=== PATIENT | male | born 1995 | race Caucasian/White ===

== ENCOUNTER 2018-10-06 18:20 | Observation (INO) | payer OTHER ==
[2018-10-06] MEDS ORDERED: K-LYTE 25 MEQ PO ONE (18:27)
[2018-10-06] MEDS: POTASSIUM CHLORIDE 20 mEq IN WATER 100ML 20 MEQ/100 ML BAG IV SCH ×2 (19:08→21:22)
[2018-10-06] MEDS ORDERED: Sodium Chloride 0.9% 1000 ML 1,000 ML ONE (20:14)
[2018-10-06] MEDS ORDERED: Sodium Chloride 0.9% 1000 ML 1,000 ML IV SCH (20:30)
[2018-10-06] MEDS ORDERED: POTASSIUM CHLORIDE 20 mEq IN WATER 100ML 100 ML IV ONE (21:18)
--- NOTE | 2018-10-06 22:04 | PCM.SSS ---
History of Present Illness - Chief Complaint Chief Complaint: HYPOKALEMIA History of Present Illness: is a 23 year old male pt of mine from [facility] with hemihypertrophy and intellectual functional disability who was admitted with hypokalemia, directly. He came to me for surgical clearance. His mom noted that he had been hypokalemic two different times in the past 1-2 years, with potassium down to 2.1. I ordered a serum magnesium and thought I ordered a serum potassium but it was not put in. Today I ordered the potassium and the pt came to the lab. He was found to have potassium of 2.4 so was directly admitted in an effort to be able to clear him surgically before his scheduled procedure (7:30 tomorrow a.m. in [place]). He is receiving a 40mEq bolus of potassium and po K lyte 25 mEq; if his post potassium is 3.0 or more, he will be discharged to home. - Review of Systems All Other Systems: Reviewed and Negative Medications & Allergies Home Medications: Home Medication List No Home Meds [No Home Meds] 1 ea MC UD 06/25/15 [History Confirmed 10/06/18] Allergies/Adverse Reactions: Allergies Allergy/AdvReac Type Severity Reaction Status Date / Time azithromycin [From Zithromax] Allergy Verified 10/06/18 18:56 egg Allergy Verified 06/25/15 12:08 ranitidine HCl [From Zantac] Allergy Verified 06/25/15 12:08 - Past Medical History Past Medical History: Yes Neurological History: No Pertinent History ENT History: No Pertinent History Cardiac History: No Pertinent History Respiratory History: No Pertinent History Endocrine Medical History: No Pertinent History Musculoskelatal History: Other GI Medical History: No Pertinent History History: No Pertinent History Pyscho-Social History: Depression Male Reproductive Disorders: No Pertinent History Comment: Hemihypertrophy - Past Surgical History Past Surgical History: Yes Neuro Surgical History: No Pertinent History Cardiac History: No Pertinent History Respiratory Surgery: No Pertinent History GI Surgical History: No Pertinent History Genitourinary Surgical Hx: No Pertinent History Musculskeletal Surgical Hx: Other Male Surgical History: No Pertinent History Other Surgical History: defect--bilat leg surgery, bilateral knee surgeries, manoj from hip to knee R leg - Social History Smoking Status: Current every day smoker Exposure to second hand smoke: No Alcohol: Occasionally Drug Use: none - Physical Exam General Appearance: no apparent distress, alert, thin Neurologic Exam: oriented x 3, cooperative Eye Exam: eyes nml inspection Ears, Nose, Throat Exam: moist mucous membranes Neck Exam: normal inspection, non-tender, No lymphadenopathy Respiratory Exam: normal breath sounds, lungs clear, No crackles/rales, No rhonchi, No wheezing Cardiovascular Exam: regular rate/rhythm, normal heart sounds, No murmur Gastrointestinal/Abdomen Exam: No mass, No guarding Extremity Exam: normal inspection, pedal edema, swelling Skin Exam: normal color, warm, dry, No rash Assessment/Plan (1) Hypokalemia Current Visit: No Status: Acute Assessment & Plan: Repleting; when done pt can d/c to home. Code(s): E87.6 - HYPOKALEMIA Hospital Summary - Hospital Course Hospital Course: is a 23 year old male pt of mine from [facility] with hemihypertrophy and intellectual functional disability who was admitted with hypokalemia, directly. He came to me for surgical clearance. His mom noted that he had been hypokalemic two different times in the past 1-2 years, with potassium down to 2.1. I ordered a serum magnesium and thought I ordered a serum potassium but it was not put in. Today I ordered the potassium and the pt came to the lab. He was found to have potassium of 2.4 so was directly admitted in an effort to be able to clear him surgically before his scheduled procedure (7:30 tomorrow a.m. in [place]). He is receiving a 40mEq bolus of potassium and po K lyte 25 mEq; if his post potassium is 3.0 or more, he will be discharged to home. - Vitals & Intake/Output Intake & Output: Intake & Output 10/04/18 10/05/18 10/06/18 10/07/18 11:59 11:59 11:59 11:59 Intake Total 300 Balance 300 Weight 86.5 kg - Discharge Disposition: Home, Self-Care Condition: Good Prescriptions: Continue No Home Meds [No Home Meds] 1 nilda [facility] Follow up with: ROBIN COSME [Primary Care Provider] - 1 Week
[2018-10-07] MEDS ORDERED: POTASSIUM CHLORIDE 20 mEq IN WATER 100ML 20 MEQ/100 ML BAG IV ONE (02:48)
--- NOTE | 2018-10-07 09:14 | PCM.NOTE ---
Date and Time: 10/07/18910 Subjective Assessment: After 40 mEq K rider and 25 mEq Klyte his potassium went from 2.4 to 2.6. Did 20 mEq more Krider with potassium 2.8. His surgery has been cancelled for this morning. He is not having any subjective complaints. - Review of Systems Constitutional: No Fever Abdominal/Gastrointestinal: No Vomiting, No Diarrhea Objective Exam General Appearance: no apparent distress, alert Neurologic Exam: oriented x 3, cooperative Skin Exam: normal color, warm, dry, No rash Eye Exam: eyes nml inspection Ears, Nose, Throat Exam: moist mucous membranes Respiratory Exam: normal breath sounds, lungs clear, No crackles/rales, No rhonchi, No wheezing Cardiovascular Exam: regular rate/rhythm, normal heart sounds, No murmur Gastrointestinal/Abdomen Exam: soft, normal bowel sounds, No tenderness, No distention, No mass, No guarding, No rebound Extremity Exam: normal inspection, No pedal edema, No swelling OBJECTIVE DATA Vital Signs: Vital Signs - 24 hr Temp Pulse Resp BP Pulse Ox 10/07/18 07:30 97.8 F 55 L 18 134/58 98 10/07/18 04:00 97.5 F 69 14 112/79 99 10/07/18 00:13 98.5 F 77 16 114/70 98 10/06/18 21:25 98.6 F 91 H 18 112/65 97 Intake and Output: Intake & Output 10/04/18 10/05/18 10/06/18 10/07/18 11:59 11:59 11:59 11:59 Intake Total 1278 Balance 1278 Weight 86.5 kg Lab Results: Lab Results-Last 24 Hours 10/07/18 10/07/18 Range/Units 02:12 06:09 Potassium 2.6 L* 2.8 L* (3.5-5.1) mmol/L Assessment/Plan (1) Hypokalemia Current Visit: No Status: Acute Assessment & Plan: He is likely chronically low, but I do not know the etiology of that. Consulted nephrology, thank you. After his previous episode of low K he was not sent home on any potassium. Has a hard time taking pills so I will start him on Klyte po. Code(s): E87.6 - HYPOKALEMIA (2) Hemihypertrophy Current Visit: Yes Status: Chronic Code(s): Q89.8 - OTHER SPECIFIED CONGENITAL MALFORMATIONS (3) Intellectual disability Current Visit: Yes Status: Chronic Code(s): F79 - UNSPECIFIED INTELLECTUAL DISABILITIES
[2018-10-07] MEDS ORDERED: K-LYTE 25 MEQ PO SCH (10:00)
[2018-10-07 12:41] VITALS: BP 130/60; PULSE 78; O2SAT 96
== END 2018-10-07 16:38 | disposition home or self-care (01) ==
LOC: MED SURG 18:20
PROVIDERS: ADMIT Family Medicine; ATTEND Family Medicine
DX: E87.6 Hypokalemia (principal); F79 Unspecified intellectual disabilities; Q89.8 Other specified congenital malformations
CPT/HCPCS: 36415; 80048; 84132; 93268; J3480; A9270-GY; G0378

== ENCOUNTER 2018-11-24 10:58 | Observation (INO) | payer OTHER ==
[2018-11-24 12:35] LABS: MAGNESIUM 1.8 mg/dL (1.6-2.3)
[2018-11-24 12:38] LABS: Potassium 2.4 mmol/L (3.5-5.1)
[2018-11-24] MEDS: POTASSIUM CHLORIDE 20 mEq IN WATER 100ML 100 ML IV SCH ×2 (12:47→16:40)
[2018-11-24] MEDS: Sodium Chloride 0.9% 1000 ML 1,000 ML IV SCH (12:47)
[2018-11-24] MEDS ORDERED: K-LYTE 25 MEQ PO SCH (14:00)
[2018-11-24] MEDS ORDERED: K-LYTE 25 MEQ PO ONE (14:20)
[2018-11-25] MEDS ORDERED: POTASSIUM CHLORIDE 20 mEq IN WATER 100ML 20 MEQ/100 ML BAG IV ONE (01:24)
[2018-11-25] MEDS: Sodium Chloride 0.9% 1000 ML 1,000 ML IV SCH (01:39)
[2018-11-25 06:35] LABS: ANION GAP 10.7 MEQ/L (5-15); BLOOD UREA NITROGEN 13 mg/dL (9-20); CHLORIDE 99 mmol/L (98-107); Carbon Dioxide 33 mmol/L (22-30); Creatinine 1 0.64 mg/dL (0.66-1.25); Glucose 97 mg/dL (74-106); Potassium 3.1 mmol/L (3.5-5.1); SODIUM 140 mmol/L (137-145)
--- NOTE | 2018-11-25 08:30 | XRAY ---
Exam: Renal ultrasound from 11/25/2018. Comparison: Ultrasound of the upper abdomen from 11/08/2013. Indication: Hypokalemia. Findings: The right kidney measures 9.5 cm in length and 4.5 cm x 4.7 cm in cross section on. Right renal cortex echogenicity and thickness appear unremarkable. Renal cortex thickness is approximately 1.3 cm within the upper pole on a longitudinal image. No focal right renal mass or hydronephrosis is seen. The left kidney measures 9.3 cm in length and 6.1 cm x 5.15 cm in cross-sectional diameter. Renal cortex thickness within the upper pole is 1.7 cm on a longitudinal image. Cortex thickness and echogenicity appear unremarkable. No focal left renal mass or hydronephrosis is seen. The urinary bladder is distended. Color flow images reveal bilateral distal ureteral jets. Impression: 1. Unremarkable bilateral renal ultrasound. The kidneys are of normal size and reveal no mass or hydronephrosis.
[2018-11-25 08:40] VITALS: BP 95/45; PULSE 59; O2SAT 92
--- NOTE | 2018-11-25 09:18 | PCM.SSS ---
History of Present Illness - Chief Complaint Chief Complaint: hypokalemia History of Present Illness: is a 23 year old male pt of mine from [facility] with hemihypertrophy, developmental disorder and chronic hypokalemia who was admitted yesterday directly after a lab ordered by Dr. Matamoros had returned with potassium 2.4. He was given IV and po potassium, on telemetry, and has done well. His highest potassium was 3.2, and this morning it was 3.1. He will be discharged to home on K-lyte 25 mEq BID instead of once daily. He was in the midst of getting a 24hour urine yesterday when he came in - RN to contact Dr. Matamoros's office and let them know, in case the treatment we gave invalidates his result. - Review of Systems All Other Systems: Reviewed and Negative Medications & Allergies Home Medications: Home Medication List Potassium Bicarbonate 25 MEQ [K-Lyte 25 Meq] 25 meq PO BID #60 tab [Rx] Allergies/Adverse Reactions: Allergies Allergy/AdvReac Type Severity Reaction Status Date / Time azithromycin [From Zithromax] Allergy Verified 10/06/18 18:56 egg Allergy Verified 06/25/15 12:08 ranitidine HCl [From Zantac] Allergy Verified 06/25/15 12:08 - Past Medical History Past Medical History: Yes Neurological History: No Pertinent History ENT History: No Pertinent History Cardiac History: No Pertinent History Respiratory History: No Pertinent History Endocrine Medical History: No Pertinent History Musculoskelatal History: Other GI Medical History: No Pertinent History History: No Pertinent History Pyscho-Social History: Depression Male Reproductive Disorders: No Pertinent History Comment: Hemihypertrophy - Past Surgical History Past Surgical History: Yes Neuro Surgical History: No Pertinent History Cardiac History: No Pertinent History Respiratory Surgery: No Pertinent History GI Surgical History: No Pertinent History Genitourinary Surgical Hx: No Pertinent History Musculskeletal Surgical Hx: Other Male Surgical History: No Pertinent History Other Surgical History: defect--bilat leg surgery, bilateral knee surgeries, manoj from hip to knee R leg - Social History Smoking Status: Never smoker Exposure to second hand smoke: No Alcohol: Occasionally Drug Use: none - Physical Exam Vital Signs: Vital Signs - 24 hr Temp Pulse Resp BP Pulse Ox 11/25/18 08:00 97.4 F 59 L 18 95/45 92 L 11/25/18 04:00 98.2 F 71 18 111/68 96 11/25/18 01:06 16 11/25/18 00:00 19 11/24/18 23:52 97.8 F 75 19 115/63 95 11/24/18 20:00 98.1 F 74 18 115/59 95 11/24/18 16:00 97.8 F 67 20 112/70 98 11/24/18 12:00 97.3 F 70 20 122/73 96 General Appearance: no apparent distress, alert Neurologic Exam: oriented x 3, cooperative Eye Exam: eyes nml inspection Ears, Nose, Throat Exam: moist mucous membranes Neck Exam: normal inspection, non-tender, No lymphadenopathy Respiratory Exam: normal breath sounds, lungs clear, No crackles/rales, No rhonchi, No wheezing Cardiovascular Exam: regular rate/rhythm, normal heart sounds, No murmur Gastrointestinal/Abdomen Exam: soft, normal bowel sounds, No tenderness, No distention, No mass, No guarding, No rebound Extremity Exam: normal inspection, No pedal edema, No swelling Skin Exam: normal color, warm, dry, No rash Wound Assessment: Skin/Wound Assessment Wound/Incision Assessment Start: 11/24/18 21: 28 Text: Status: Active Freq: Q6H Protocol: Document 11/25/18 01:06 BW (Rec: 11/25/18 01:06 BW [id number]) Wound Photo Photo Taken No Results - Labs Lab/Micro Results: Lab Results-Last 24 Hours 11/24/18 11/24/18 11/24/18 Range/Units 12:20 17:15 23:55 Sodium (137-145) mmol/L Potassium 2.4 L* 2.8 L* 3.2 L (3.5-5.1) mmol/L Chloride (98-107) mmol/L Carbon Dioxide (22-30) mmol/L Anion Gap (5-15) MEQ/L BUN (9-20) mg/dL Creatinine (0.66-1.25) mg/dL Estimated GFR ML/MIN Glucose (74-106) mg/dL Calcium (8.4-10.2) mg/dL Magnesium 1.8 (1.6-2.3) mg/dL 11/25/18 Range/Units 05:00 Sodium 140 (137-145) mmol/L Potassium 3.1 L (3.5-5.1) mmol/L Chloride 99 (98-107) mmol/L Carbon Dioxide 33 H (22-30) mmol/L Anion Gap 10.7 (5-15) MEQ/L BUN 13 (9-20) mg/dL Creatinine 0.64 L (0.66-1.25) mg/dL Estimated GFR > 60.0 ML/MIN Glucose 97 (74-106) mg/dL Calcium 9.0 (8.4-10.2) mg/dL Magnesium (1.6-2.3) mg/dL - Radiology Impressions Radiology Exams & Impressions: Radiology Procedures Category Date Time Status Ultrasound Kidney [KIDNEY] [US] Routine Exams 11/25/18 08:00 Completed Assessment/Plan (1) Hypokalemia Current Visit: No Status: Acute Assessment & Plan: will send pt home with rx for Klyte 25 mEq po BID - he thinks he was supposed to go up to this dose anyway but unsure if he had an rx for that. Continue f/u with Dr. Matamoros on Friday as planned. Code(s): E87.6 - [facility] Summary - Hospital Course Hospital Course: is a 23 year old male pt of mine from [facility] with hemihypertrophy, developmental disorder and chronic hypokalemia who was admitted yesterday directly after a lab ordered by Dr. Matamoros had returned with potassium 2.4. He was given IV and po potassium, on telemetry, and has done well. His highest potassium was 3.2, and this morning it was 3.1. He will be discharged to home on K-lyte 25 mEq BID instead of once daily. He was in the midst of getting a 24hour urine yesterday when he came in - RN to contact Dr. Matamoros's office and let them know, in case the treatment we gave invalidates his result. - Vitals & Intake/Output Vital Signs: Vital Signs Temperature 97.4 F 11/25/18 08:00 Pulse Rate 59 L 11/25/18 08:00 Respiratory Rate 18 11/25/18 08:00 Blood Pressure 95/45 11/25/18 08:00 O2 Sat by Pulse Oximetry 92 L 11/25/18 08:00 Intake & Output: Intake & Output 11/22/18 11/23/18 11/24/18 11/25/18 11:59 11:59 11:59 11:59 Intake Total 2508 Balance 2508 Weight 87.7 kg - Lab Result Diagrams: 11/25/18 05:00 Lab Results-Last 24 Hrs: Lab Results-Last 24 Hours 11/24/18 11/24/18 11/24/18 Range/Units 12:20 17:15 23:55 Sodium (137-145) mmol/L Potassium 2.4 L* 2.8 L* 3.2 L (3.5-5.1) mmol/L Chloride (98-107) mmol/L Carbon Dioxide (22-30) mmol/L Anion Gap (5-15) MEQ/L BUN (9-20) mg/dL Creatinine (0.66-1.25) mg/dL Estimated GFR ML/MIN Glucose (74-106) mg/dL Calcium (8.4-10.2) mg/dL Magnesium 1.8 (1.6-2.3) mg/dL 11/25/18 Range/Units 05:00 Sodium 140 (137-145) mmol/L Potassium 3.1 L (3.5-5.1) mmol/L Chloride 99 (98-107) mmol/L Carbon Dioxide 33 H (22-30) mmol/L Anion Gap 10.7 (5-15) MEQ/L BUN 13 (9-20) mg/dL Creatinine 0.64 L (0.66-1.25) mg/dL Estimated GFR > 60.0 ML/MIN Glucose 97 (74-106) mg/dL Calcium 9.0 (8.4-10.2) mg/dL Magnesium (1.6-2.3) mg/dL - Radiology Exams Ordered Rad Exams-Entire Visit: Radiology Procedures Category Date Time Status Ultrasound Kidney [KIDNEY] [US] Routine Exams 11/25/18 08:00 Completed - Discharge Disposition: Home, Self-Care Condition: Good Prescriptions: Changed Potassium Bicarbonate 25 MEQ [K-Lyte 25 Meq] 25 meq PO BID #60 tab Follow up with: ROBIN COSME [Primary Care Provider] - 12/02/18 10:00 am
== END 2018-11-25 10:15 | disposition home or self-care (01) ==
LOC: MED SURG 11:38
PROVIDERS: ADMIT Family Medicine; ATTEND Family Medicine
DX: E87.6 Hypokalemia (principal); F89 Unspecified disorder of psychological development; Q89.8 Other specified congenital malformations; Z79.899 Other long term (current) drug therapy
CPT/HCPCS: 36415; 76770; 80048; 82340; 82575; 83735; 84132; 84133; 93268; G0378; J3480; A9270-GY

== ENCOUNTER 2019-02-17 13:46 | Observation (INO) | payer OTHER ==
[2019-02-17] MEDS ORDERED: Sodium Chloride 0.9% 1000 ML 1,000 ML ONE (15:25)
[2019-02-17] MEDS ORDERED: Sodium Chloride 0.9% 1000 ML 1,000 ML IV STA (15:29)
[2019-02-17] MEDS: POTASSIUM CHLORIDE 20 mEq IN WATER 100ML 20 MEQ/100 ML BAG IV SCH ×2 (15:31→18:08)
--- NOTE | 2019-02-17 15:56 | ERPHSYRPT ---
- History of Present Illness Time Seen by Provider: 02/17/19 14:30 Source: patient Exam Limitations: no limitations Patient Subjective Stated Complaint: pt here for low KCL 2.6 today, pt has hx of low KCL and has to have replacement Triage Nursing Assessment: pt alert, resp easy skin w/d/p. 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 Pt had labs done today and potassium was low, 2.6 and has to be above 3.0 for him to go home. Pt sees Dr. Morris and his doctor sent him to Dr. Pa's office where they normally direct admit him for potassium infusion but she is out of the office today, so they sent him over here. Timing/Duration: today, other (with hx of the same) Severity: mild Modifying Factors: Improves With: nothing Associated Symptoms: denies symptoms Allergies/Adverse Reactions: azithromycin [From Zithromax] Allergy (Verified 02/17/19 14:04) egg Allergy (Verified 02/17/19 14:04) ranitidine HCl [From Zantac] Allergy (Verified 02/17/19 14:04) Hx Tetanus, Diphtheria Vaccination/Date Given: Yes Hx Influenza Vaccination/Date Given: No Hx Pneumococcal Vaccination/Date Given: No Immunizations Up to Date: Yes - Review of Systems Constitutional: No Symptoms Eyes: No Symptoms Ears, Nose, & Throat: No Symptoms Respiratory: No Symptoms Cardiac: No Symptoms Abdominal/Gastrointestinal: No Symptoms Genitourinary Symptoms: No Symptoms Musculoskeletal: No Symptoms Skin: No Symptoms Neurological: No Symptoms Psychological: No Symptoms Endocrine: No Symptoms All Other Systems: Reviewed and Negative - Past Medical History Pertinent Past Medical History: Yes Neurological History: No Pertinent History ENT History: No Pertinent History Cardiac History: No Pertinent History Respiratory History: No Pertinent History Endocrine Medical History: No Pertinent History Musculoskeletal History: Other GI Medical History: No Pertinent History History: No Pertinent History Psycho-Social History: Depression Male Reproductive Disorders: No Pertinent History Other Medical History: Hemihypertrophy,gitelman - Past Surgical History Past Surgical History: Yes Neuro Surgical History: No Pertinent History Cardiac: No Pertinent History Respiratory: No Pertinent History Gastrointestinal: No Pertinent History Genitourinary: No Pertinent History Musculoskeletal: Other Male Surgical History: No Pertinent History Other Surgical History: defect--bilat leg surgery, bilateral knee surgeries, manoj from hip to knee R leg - Social History Smoking Status: Current every day smoker Exposure to second hand smoke: Yes Drug Use: none Patient Lives Alone: Yes - Nursing Vital Signs Nursing Vital Signs: Initial Vital Signs Temperature 98.4 F 02/17/19 13:55 Pulse Rate 77 02/17/19 13:55 Respiratory Rate 16 02/17/19 13:55 Blood Pressure 138/70 02/17/19 13:55 O2 Sat by Pulse Oximetry 98 02/17/19 13:55 Pain Scale Pain Intensity 0 - Physical Exam General Appearance: no apparent distress Eye Exam: PERRL/EOMI, eyes nml inspection Ears, Nose, Throat Exam: moist mucous membranes Neck Exam: normal inspection Respiratory Exam: normal breath sounds Cardiovascular Exam: regular rate/rhythm, normal heart sounds, normal peripheral pulses, No murmur, No friction rub Gastrointestinal/Abdomen Exam: soft, normal bowel sounds, No tenderness, No distention, No mass Rectal Exam: not done Back Exam: normal range of motion Extremity Exam: normal inspection Neurologic Exam: alert, oriented x 3, cooperative, normal mood/affect Skin Exam: normal color Lymphatic Exam: No adenopathy SpO2: 100 O2 Delivery: Room Air Ordered Tests: Medication Summary Generic Name Dose Route Start Last Admin Trade Name Freq PRN Reason Stop Dose Admin Potassium Chloride 20 meq in 100 mls @ 50 mls/hr 02/17/19 15:30 02/17/19 15: 31 Potassium Chloride 20 Meq In Water 100ml IV 02/17/19 19:29 50 mls/hr Q2H JAIRO Administration Sodium Chloride 1,000 mls @ 999 mls/hr 02/17/19 15:29 02/17/19 15:32 Sodium Chloride 0.9% 1000 Ml IV 02/17/19 16:29 999 mls/hr .[id number] STA Administration Discontinued Medications Generic Name Dose Route Start Last Admin Trade Name Freq PRN Reason Stop Dose Admin Sodium Chloride Confirm 02/17/19 15:25 Sodium Chloride 0.9% 1000 Ml Administered 02/17/19 15:26 Dose 1,000 mls @ ud .ROUTE .STK-MED ONE - Progress Progress: improved Progress Note: 02/17/19 15:57 Pt started on KCL infusion and admitted to obs. Discussed with : [place] Will see patient in: hospital (observation) - Departure Departure Disposition: Observation Clinical Impression: Hypokalemia, inadequate intake, History of hypokalemia Condition: Stable Critical Care Time: No Referrals: ROBIN COSME [Primary Care Provider] - Additional Instructions: Admit to obs to the Service of Dr. Estefania Gray for potassium replacement.
[2019-02-17] MEDS: K-LYTE 25 MEQ PO SCH (21:15)
[2019-02-17] MEDS: MAG-OX 400 PO SCH (21:15)
[2019-02-18] MEDS ORDERED: POTASSIUM CHLORIDE 20 mEq IN WATER 100ML 20 MEQ/100 ML BAG IV ONE (00:24)
[2019-02-18 05:14] LABS: Absolute Neutrophil Ct (ANC) 4.51 (1.4-6.9); BASOPHIL % 0.3 % (0.0-0.4); Basophil (Absolute #) 0.03 (0-0.4); Eosinophil % 3.7 % (0.00-5.0); Eosinophil (Absolute #) 0.35 (0-0.5); Hematocrit 38.9 % (42-50); Hemoglobin 13.3 gm/dl (12.5-18.0); Lymphocyte (Absolute #) 3.92 (1.0-4.6); Mean Cell Volume 83.8 fl (78-100); Mean Corpuscular Hemoglobin 28.7 pg (26-32); Mean Corpuscular Hgb Concent. 34.2 g/dl (32-36); Mean Platelet Volume 9.6 fl (6-9.5); Monocyte (Absolute #) 0.74 (0.0-1.3); Monocytes % 7.7 % (0.0-12.0); Neutrophil % 47.3 % (36.0-66.0); Platelet Count 248 K/mm3 (150-450); Red Blood Count 4.64 M/mm3 (4.1-5.6); Red Cell Distribution Width 14.1 % (11.5-14.0); White Blood Count 9.6 K/mm3 (4.0-10.5)
[2019-02-18 05:41] LABS: ALBUMIN 3.8 g/dL (3.5-5.0); ALKALINE PHOSPHATASE 61 U/L (38-126); ANION GAP 11.6 MEQ/L (5-15); BLOOD UREA NITROGEN 13 mg/dL (9-20); CHLORIDE 99 mmol/L (98-107); Calcium 9.3 mg/dL (8.4-10.2); Carbon Dioxide 35 mmol/L (22-30); Creatinine 1 0.87 mg/dL (0.66-1.25); Glucose 104 mg/dL (74-106); MAGNESIUM 1.9 mg/dL (1.6-2.3); Potassium 3.4 mmol/L (3.5-5.1); SGOT/AST 21 U/L (17-59); SGPT/ALT 33 U/L (0-50); SODIUM 142 mmol/L (137-145); Total Protein 7.3 g/dL (6.3-8.2)
[2019-02-18 07:25] VITALS: BP 112/55; PULSE 71; O2SAT 97
--- NOTE | 2019-02-18 08:50 | PCM.SSS ---
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 He had gotten a regular lab draw from Dr. Matamoros that showed his potassium to be 2.6. He was instructed to come to [place] for admission and he went through the ER as I was out yesterday. Overnight he has done well and his potassium this morning is 3.4. Pt tells me that he has been taking his amiloride, potassium, and magnesium regularly; however instead of taking the amiloride BID, he has decided on his own to take it TID. I did let Dr. Matamoros know about the change in dosing. Pt also had some diarrhea recently. - Review of Systems Abdominal/Gastrointestinal: Diarrhea Musculoskeletal: Injury (to L ankle; Xr in ER was negative. was 1 mo ago and dorsum of L foot still painful with walking) Medications & Allergies Home Medications: Home Medication List Amiloride HCl 5 mg PO DAILY 02/17/19 [History Confirmed 02/17/19] Magnesium Oxide 400 mg [Mag-Ox 400] 400 mg PO BID 02/17/19 [History Confirmed 02/17/19] Potassium Bicarbonate 25 MEQ [K-Lyte 25 Meq] 50 meq PO BID 02/17/19 [ History Confirmed 02/17/19] Allergies/Adverse Reactions: Allergies Allergy/AdvReac Type Severity Reaction Status Date / Time azithromycin [From Zithromax] Allergy Verified 02/17/19 14:04 egg Allergy Verified 02/17/19 14:04 ranitidine HCl [From Zantac] Allergy Verified 02/17/19 14:04 - Past Medical History Past Medical History: Yes Neurological History: No Pertinent History ENT History: No Pertinent History Cardiac History: No Pertinent History Respiratory History: No Pertinent History Endocrine Medical History: No Pertinent History Musculoskelatal History: Other GI Medical History: No Pertinent History History: No Pertinent History Pyscho-Social History: Depression Male Reproductive Disorders: No Pertinent History Comment: Hemihypertrophy,gitelman - Past Surgical History Past Surgical History: Yes Neuro Surgical History: No Pertinent History Cardiac History: No Pertinent History Respiratory Surgery: No Pertinent History GI Surgical History: No Pertinent History Genitourinary Surgical Hx: No Pertinent History Musculskeletal Surgical Hx: Other Male Surgical History: No Pertinent History Other Surgical History: defect--bilat leg surgery, bilateral knee surgeries, manoj from hip to knee R leg - Social History Smoking Status: Current every day smoker How long have you smoked: 8 Exposure to second hand smoke: Yes Alcohol: Occasionally Drug Use: none - Physical Exam Vital Signs: Vital Signs - 24 hr Temp Pulse Resp BP Pulse Ox 02/18/19 07:24 97.8 F 71 20 112/55 97 02/18/19 04:00 98.2 F 66 18 99/49 98 02/18/19 03:51 16 02/18/19 00:00 20 02/17/19 23:48 98.0 F 63 20 123/60 98 02/17/19 20:00 98.0 F 89 18 123/74 98 02/17/19 16:43 98.1 F 72 18 117/58 95 02/17/19 16:33 98.1 F 72 18 117/58 95 02/17/19 16:01 100 02/17/19 15:38 74 16 124/73 100 02/17/19 13:55 98.4 F 77 16 138/70 98 General Appearance: no apparent distress, alert Neurologic Exam: oriented x 3, cooperative Eye Exam: eyes nml inspection Ears, Nose, Throat Exam: moist mucous membranes Neck Exam: normal inspection, non-tender, No lymphadenopathy Respiratory Exam: normal breath sounds, lungs clear, No crackles/rales, No rhonchi, No wheezing Cardiovascular Exam: regular rate/rhythm, normal heart sounds, No murmur Gastrointestinal/Abdomen Exam: soft, normal bowel sounds, No tenderness, No distention, No mass, No guarding, No rebound Extremity Exam: normal inspection, No pedal edema, No swelling Skin Exam: normal color, warm, dry, No rash Results - Labs Lab/Micro Results: Lab Results-Last 24 Hours 02/17/19 02/18/19 02/18/19 Range/Units 23:45 05:00 05:00 WBC 9.6 (4.0-10.5) K/mm3 RBC 4.64 (4.1-5.6) M/mm3 Hgb 13.3 (12.5-18.0) gm/dl Hct 38.9 L (42-50) % MCV 83.8 (78-100) fl MCH 28.7 (26-32) pg MCHC 34.2 (32-36) g/dl RDW 14.1 H (11.5-14.0) % Plt Count 248 (150-450) K/mm3 MPV 9.6 H (6-9.5) fl Gran % 47.3 (36.0-66.0) % Eos # (Auto) 0.35 (0-0.5) Absolute Lymphs (auto) 3.92 (1.0-4.6) Absolute Monos (auto) 0.74 (0.0-1.3) Lymphocytes % 41.0 (24.0-44.0) % Monocytes % 7.7 (0.0-12.0) % Eosinophils % 3.7 (0.00-5.0) % Basophils % 0.3 (0.0-0.4) % Absolute Granulocytes 4.51 (1.4-6.9) Basophils # 0.03 (0-0.4) Sodium 142 (137-145) mmol/L Potassium 3.1 L 3.4 L (3.5-5.1) mmol/L Chloride 99 (98-107) mmol/L Carbon Dioxide 35 H (22-30) mmol/L Anion Gap 11.6 (5-15) MEQ/L BUN 13 (9-20) mg/dL Creatinine 0.87 (0.66-1.25) mg/dL Estimated GFR > 60.0 ML/MIN Glucose 104 (74-106) mg/dL Calcium 9.3 (8.4-10.2) mg/dL Magnesium 1.9 (1.6-2.3) mg/dL Total Bilirubin 0.40 (0.2-1.3) mg/dL AST 21 (17-59) U/L ALT 33 (0-50) U/L Alkaline Phosphatase 61 (38-126) U/L Serum Total Protein 7.3 (6.3-8.2) g/dL Albumin 3.8 (3.5-5.0) g/dL Assessment/Plan (1) Gitelman disease Current Visit: Yes Status: Acute Assessment & Plan: Seeing nephrology, Dr. Matamoros, thank you. 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 He had gotten a regular lab draw from Dr. Matamoros that showed his potassium to be 2.6. He was instructed to come to [place] for admission and he went through the ER as I was out yesterday. Overnight he has done well and his potassium this morning is 3.4. Pt tells me that he has been taking his amiloride, potassium, and magnesium regularly; however instead of taking the amiloride BID, he has decided on his own to take it TID. I did let Dr. Matamoros know about the change in dosing. Pt also had some diarrhea recently. Pt to be discharged to home today. - Vitals & Intake/Output Vital Signs: Vital Signs Temperature 97.8 F 02/18/19 07:24 Pulse Rate 71 02/18/19 07:24 Respiratory Rate 20 02/18/19 07:24 Blood Pressure 112/55 02/18/19 07:24 O2 Sat by Pulse Oximetry 97 02/18/19 07:24 Intake & Output: Intake & Output 02/15/19 02/16/19 02/17/19 02/18/19 11:59 11:59 11:59 11:59 Intake Total 3694 Balance 3694 Weight 91.5 kg - Lab Result Diagrams: 02/18/19 05:00 02/18/19 05:00 Lab Results-Last 24 Hrs: Lab Results-Last 24 Hours 02/17/19 02/18/19 02/18/19 Range/Units 23:45 05:00 05:00 WBC 9.6 (4.0-10.5) K/mm3 RBC 4.64 (4.1-5.6) M/mm3 Hgb 13.3 (12.5-18.0) gm/dl Hct 38.9 L (42-50) % MCV 83.8 (78-100) fl MCH 28.7 (26-32) pg MCHC 34.2 (32-36) g/dl RDW 14.1 H (11.5-14.0) % Plt Count 248 (150-450) K/mm3 MPV 9.6 H (6-9.5) fl Gran % 47.3 (36.0-66.0) % Eos # (Auto) 0.35 (0-0.5) Absolute Lymphs (auto) 3.92 (1.0-4.6) Absolute Monos (auto) 0.74 (0.0-1.3) Lymphocytes % 41.0 (24.0-44.0) % Monocytes % 7.7 (0.0-12.0) % Eosinophils % 3.7 (0.00-5.0) % Basophils % 0.3 (0.0-0.4) % Absolute Granulocytes 4.51 (1.4-6.9) Basophils # 0.03 (0-0.4) Sodium 142 (137-145) mmol/L Potassium 3.1 L 3.4 L (3.5-5.1) mmol/L Chloride 99 (98-107) mmol/L Carbon Dioxide 35 H (22-30) mmol/L Anion Gap 11.6 (5-15) MEQ/L BUN 13 (9-20) mg/dL Creatinine 0.87 (0.66-1.25) mg/dL Estimated GFR > 60.0 ML/MIN Glucose 104 (74-106) mg/dL Calcium 9.3 (8.4-10.2) mg/dL Magnesium 1.9 (1.6-2.3) mg/dL Total Bilirubin 0.40 (0.2-1.3) mg/dL AST 21 (17-59) U/L ALT 33 (0-50) U/L Alkaline Phosphatase 61 (38-126) U/L Serum Total Protein 7.3 (6.3-8.2) g/dL Albumin 3.8 (3.5-5.0) g/dL - Procedures and Test Procedures and Tests throughout Hospitalization: Therapy Orders & Screens 02/17/19 17:08 Smoking Cessation Education ONCE Comment: Diagnosis: hypokalemia Smoking Status: Current every day smoker How long have you smoked: 8 Have you smoked in the past 12 months: Yes Approximately how many cigarettes per day: 1 pack Do you dip or chew tobacco: No - Discharge Disposition: Home, Self-Care Condition: Good Prescriptions: Continue Potassium Bicarbonate 25 MEQ [K-Lyte 25 Meq] 50 meq PO BID Magnesium Oxide 400 mg [Mag-Ox 400] 400 mg PO BID Amiloride HCl 5 mg PO DAILY Follow up with: ROBIN COSME [Primary Care Provider] - 1 Week
[2019-02-18] MEDS: MAG-OX 400 PO SCH (08:58)
[2019-02-18] MEDS: K-LYTE 25 MEQ PO SCH (08:58)
[2019-02-18] MEDS ORDERED: MIDAMOR PO SCH (10:00)
--- NOTE | 2019-02-18 10:20 | XRAY ---
Indication: Pain following injury 3-4 months ago. Comparison: None 2 nonweightbearing views of the left foot demonstrates mild 5th MTP soft tissue swelling laterally and incidental talonavicular accessory ossicle. No other bony, articular, or soft tissue abnormalities.
== END 2019-02-18 10:35 | disposition home or self-care (01) ==
LOC: ED 13:46 → MED SURG 16:26
PROVIDERS: ADMIT Family Medicine; ATTEND Family Medicine
DX: E87.6 Hypokalemia (principal); E83.42 Hypomagnesemia; E26.81 Bartter's syndrome; Q89.8 Other specified congenital malformations; Z79.899 Other long term (current) drug therapy
CPT/HCPCS: 36000; 36415; 73620; 80053; 81001; 83735; 84132; 85025; 93268; 96365; 99285; J3480; A9270-GY; G0378

== ENCOUNTER 2020-06-28 10:49 | Emergency (ER) | payer OTHER ==
[2020-06-28 11:05] VITALS: BP 142/86; PULSE 93; O2SAT 98
[2020-06-28] MEDS ORDERED: Adacel Vial IM ONE ×2 (11:11→11:14)
[2020-06-28] MEDS ORDERED: Levofloxacin 250MG Tablet ONE (11:14)
[2020-06-28] MEDS: Levofloxacin 250MG Tablet PO ONE ×2 (11:15→11:23)
--- NOTE | 2020-06-28 11:17 | ERPHSYRPT ---
- History of Present Illness Time Seen by Provider: 06/28/20 10:52 Source: patient Exam Limitations: no limitations Patient Subjective Stated Complaint: R foot pain, reports stepping on screw last night at work Triage Nursing Assessment: pt to ED c/o R foot pain after stepping on screw last night at work. noted redness, swelling and bruising to lateral R foot. pt rates 5/10 soreness pain that does not radiate. worsens with ambulation but does have steady gate Physician History: 25 years old presented in the ER with chief complaint of right foot pain and swelling after he stepped on a kingsley nail yesterday while at work when nail went through his shoe into the right lateral sole of the foot. Patient is complaining of dull aching to sharp pain moderate with activity and better with resting. This morning noticed increasing swelling and redness around the area of the nail injury. Denies any fever chills. No numbness tingling or weakness in the toes. Unsure about tetanus status. Method of Injury: other Occurred: yesterday Quality: sharpness Severity of Pain-Max: moderate Severity of Pain-Current: mild Lower Extremities Pain: foot: right Modifying Factors: Improves With: immobilization, rest. Worsens With: movement Associated Symptoms: none Allergies/Adverse Reactions: azithromycin [From Zithromax] Allergy (Verified 06/28/20 11:05) egg Allergy (Verified 06/28/20 11:05) ranitidine HCl [From Zantac] Allergy (Verified 06/28/20 11:05) Hx Tetanus, Diphtheria Vaccination/Date Given: No (unknown) Hx Influenza Vaccination/Date Given: No Hx Pneumococcal Vaccination/Date Given: No Immunizations Up to Date: No Travel Risk - International Travel Have you traveled outside of the country in past 3 weeks: No - Coronavirus Screening Are you exhibiting any of the following symptoms?: No Close contact with a COVID-19 positive Pt in past 14-21 Days: No - Vaccine Status Have you recieved a Covid-19 vaccination: No - Review of Systems Constitutional: No Symptoms Eyes: No Symptoms Ears, Nose, & Throat: No Symptoms Respiratory: No Symptoms Cardiac: No Symptoms Abdominal/Gastrointestinal: No Symptoms Musculoskeletal: Injury Skin: Induration, Skin Lesions Neurological: No Symptoms Psychological: No Symptoms Endocrine: No Symptoms Hematologic/Lymphatic: No Symptoms Immunological/Allergic: No Symptoms - Past Medical History Pertinent Past Medical History: Yes Neurological History: No Pertinent History ENT History: No Pertinent History Cardiac History: No Pertinent History Respiratory History: No Pertinent History Endocrine Medical History: No Pertinent History Musculoskeletal History: Other GI Medical History: No Pertinent History History: No Pertinent History Psycho-Social History: Depression Male Reproductive Disorders: No Pertinent History Other Medical History: Hemihypertrophy,gitelman - Past Surgical History Past Surgical History: Yes Neuro Surgical History: No Pertinent History Cardiac: No Pertinent History Respiratory: No Pertinent History Gastrointestinal: No Pertinent History Genitourinary: No Pertinent History Musculoskeletal: Other Male Surgical History: No Pertinent History Other Surgical History: defect--bilat leg surgery, bilateral knee surgeries, manoj from hip to knee R leg - Social History Smoking Status: Current every day smoker How long have you smoked: 8 Exposure to second hand smoke: Yes Drug Use: none Patient Lives Alone: No - Nursing Vital Signs Nursing Vital Signs: Initial Vital Signs Temperature 98.0 F 06/28/20 10:59 Pulse Rate 93 H 06/28/20 10:59 Respiratory Rate 17 06/28/20 10:59 Blood Pressure 142/86 06/28/20 10:59 O2 Sat by Pulse Oximetry 98 06/28/20 10:59 Pain Scale Pain Intensity 5 - Physical Exam General Appearance: no apparent distress Neck Exam: normal inspection, full range of motion Cardiovascular/Respiratory Exam: normal breath sounds, regular rate/rhythm Back Exam: normal inspection, decreased range of motion Legs Exam: bilateral leg: non-tender, normal inspection, normal range of motion, no evidence of injury Knees Exam: bilateral knee: non-tender, normal range of motion Ankle Exam: bilateral ankle: non-tender, normal inspection, normal range of motion, no evidence of injury Foot Exam: right foot: pain, soft tissue tenderness (Tenderness swelling in the mid foot lateral aspect area sole with erythema and induration. Tender to touch. No discharge. No definite of bony tenderness.), swelling, left foot: non-tender, normal inspection, no evidence of injury, bilateral foot: normal range of motion Neuro/Tendon Exam: normal sensation, normal motor functions, normal tendon functions Mental Status Exam: alert, oriented x 3 Skin Exam: normal color SpO2 Interpretation: normal SpO2: 98 O2 Delivery: Room Air Ordered Tests: Active Orders 24 hr Category Date Time Status FOOT (MINIMUM 3 VIEWS) Stat Exams 06/28/20 Ordered Medication Summary Discontinued Medications Generic Name Dose Route Start Last Admin Trade Name Angelica PRN Reason Stop Dose Admin Levofloxacin 750 mg 06/28/20 11:10 Levofloxacin 250mg Tablet PO 06/28/20 11:11 STAT ONE - Progress Progress: unchanged Progress Note: 06/28/20 11:16 He is offered pain medication which he refused. I have updated his tetanus. Started on Levaquin and will continue to go home for antipseudomonal coverage. Discussed signs symptoms of worsening needing return to ER which he seems understanding. Patient is advised to follow-up with podiatry for reevaluation. Counseled pt/family regarding: diagnosis, need for follow-up, rad results - Departure Departure Disposition: Home Clinical Impression: Stab wound of foot not toes Qualifiers: Encounter type: initial encounter Laterality: right Qualified Code(s): S91.311A - Laceration without foreign body, right foot, initial encounter Condition: Stable Critical Care Time: No Referrals: ROBIN IVEY [Primary Care Provider] - (1-2 days for reevaluation) MARY LUCERO DPM [ACTIVE STAFF] - (1-2 days for reevaluation) Instructions: Wound Infection Additional Instructions: Take Tylenol/ibuprofen as needed for pain. Weightbearing as tolerated. Better blood., Apply ice. Continue with antibiotics. Follow-up with podiatry for reevaluation in the next couple of days. Return to ER for worsening pain swelling redness discharge, difficulty ambulation or if develop fever chills. Prescriptions: Levofloxacin [Levaquin] 750 mg PO DAILY 9 Days #9 tablet
--- NOTE | 2020-06-28 11:40 | XRAY ---
Indication: Swelling/abscess. Comparison: None 3 nonweightbearing views right foot demonstrates small navicular accessory ossicle. No bony, articular, or soft tissue abnormalities.
== END 2020-06-28 11:57 | disposition home or self-care (01) ==
LOC: ED 10:49
DX: S91.311A Laceration without foreign body, right foot, initial encounter (principal); M79.671 Pain in right foot; W22.8XXA Striking against or struck by other objects, initial encounter; Y93.89 Activity, other specified; Y92.89 Other specified places as the place of occurrence of the external cause
CPT/HCPCS: 73630; 90471; 90715; 99283; A9270-GY

== ENCOUNTER 2020-12-09 00:50 | Emergency (ER) | payer OTHER ==
[2020-12-09 00:55] VITALS: BP 129/99; PULSE 103; O2SAT 99
== END 2020-12-09 01:38 | disposition left against medical advice (07) ==
LOC: ED 00:50
DX: Z53.21 Procedure and treatment not carried out due to patient leaving prior to being seen by health care provider (principal)
CPT/HCPCS: 99283

== ENCOUNTER 2021-11-01 01:03 | Emergency (ER) | payer OTHER ==
[2021-11-01] MEDS ORDERED: TORAdol 30 mg Injection IM ONE (01:38)
[2021-11-01] MEDS ORDERED: TORAdol 30 mg Injection ONE (01:40)
--- NOTE | 2021-11-01 01:43 | ERPHSYRPT ---
- History of Present Illness Time Seen by Provider: 11/01/21 01:49 Source: patient Exam Limitations: no limitations Patient Subjective Stated Complaint: I stepped off my friends porch and rolled my right ankle Triage Nursing Assessment: pt brought back to ER in wheelchair. Pt c/o rt foot and ankle pain. Pt stepped off his friends porch tonight and rolled his foot. Slight swelling noted around rt ankle. Pt can move foot and wiggle toes. Physician History: Patient is a 26-year-old male presents to our ED for evaluation of pain to his right ankle and foot. Patient states he had stepped onto a porch and inverted h is ankle. Pain occurred just prior to arrival. Patient ambulatory. Patient drove to our ED in his personal vehicle. Pain described as an ache that is localized. No radiation. Pain worse with palpation and weightbearing. Pain improved with rest. No other injuries. No pain to the knee hip back. No falls. Symptoms are mild to moderate in intensity. Patient denies a history of the same. He voices no other complaints or concerns at this time. Portions of this note were created with voice recognition technology. There may be grammatical, spelling, punctuation or sound alike errors Lower Extremities Pain: foot: right, ankle: right Modifying Factors: Improves With: movement (Palpation and weightbearing reproduces symptoms.) Associated Symptoms: none (The fall was not associated with any neuro cardiovascular symptomology. No chest pain or shortness of breath. No numbness tingling or weakness. No dizziness. No syncope. No seizures.) Allergies/Adverse Reactions: azithromycin [From Zithromax] Allergy (Intermediate, Verified 11/01/21 01:35) Vomiting Home Medications: No Reportable Medications [No Reported Medications] 12/09/20 [History] Hx Tetanus, Diphtheria Vaccination/Date Given: Yes Hx Influenza Vaccination/Date Given: No Hx Pneumococcal Vaccination/Date Given: No Immunizations Up to Date: Yes Travel Risk - International Travel Have you traveled outside of the country in past 3 weeks: No - Coronavirus Screening Are you exhibiting any of the following symptoms?: No Close contact with a COVID-19 positive Pt in past 14-21 Days: No - Vaccine Status Have you recieved a Covid-19 vaccination: Yes 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 - Review of Systems Constitutional: No Symptoms, No Fever, No Chills Eyes: No Symptoms Ears, Nose, & Throat: No Symptoms Respiratory: No Symptoms, No Cough, No Dyspnea Cardiac: No Symptoms, No Chest Pain, No Edema, No Syncope Abdominal/Gastrointestinal: No Symptoms, No Abdominal Pain, No Nausea, No Vomiting, No Diarrhea Genitourinary Symptoms: No Symptoms, No Dysuria Musculoskeletal: No Symptoms, No Back Pain, No Neck Pain Skin: No Symptoms, No Rash Neurological: No Symptoms, No Dizziness, No Focal Weakness, No Sensory Changes Psychological: No Symptoms Endocrine: No Symptoms Hematologic/Lymphatic: No Symptoms Immunological/Allergic: No Symptoms All Other Systems: Reviewed and Negative - Past Medical History Pertinent Past Medical History: Yes Neurological History: No Pertinent History ENT History: No Pertinent History Cardiac History: No Pertinent History Respiratory History: No Pertinent History Endocrine Medical History: No Pertinent History Musculoskeletal History: Other GI Medical History: No Pertinent History History: No Pertinent History Psycho-Social History: Anxiety, Depression Male Reproductive Disorders: No Pertinent History Other Medical History: Hemihypertrophy, gitelman, low back pain, knee problems - Past Surgical History Past Surgical History: Yes Neuro Surgical History: No Pertinent History Cardiac: No Pertinent History Respiratory: No Pertinent History Gastrointestinal: No Pertinent History Genitourinary: No Pertinent History Musculoskeletal: Other Male Surgical History: No Pertinent History Other Surgical History: defect--bilat leg surgery, bilateral knee surgeries, manoj from hip to knee R leg, lt shoulder - Social History Smoking Status: Current every day smoker How long have you smoked: 12 yrs Exposure to second hand smoke: No Drug Use: none Patient Lives Alone: Yes - Nursing Vital Signs Nursing Vital Signs: Initial Vital Signs Temperature 97.9 F 11/01/21 01:10 Pulse Rate 95 H 11/01/21 01:10 Respiratory Rate 11/01/21 01:10 Blood Pressure 136/82 11/01/21 01:10 O2 Sat by Pulse Oximetry 94 L 11/01/21 01:10 Pain Scale Pain Intensity 6 - Physical Exam General Appearance: no apparent distress, alert Eyes, Ears, Nose, Throat Exam: moist mucous membranes Neck Exam: normal inspection, non-tender, supple, full range of motion Cardiovascular/Respiratory Exam: chest non-tender, normal breath sounds, regular rate/rhythm, heart sounds normal, no respiratory distress Gastrointestinal/Abdominal Exam: non-tender, soft, No guarding, No tenderness Back Exam: normal inspection, No vertebral tenderness Hips Exam: bilateral: non-tender, normal inspection, normal range of motion, no evidence of injury Legs Exam: bilateral leg: non-tender, normal inspection, normal range of motion, no evidence of injury Knees Exam: bilateral knee: non-tender, normal inspection, normal range of motion, no evidence of injury Ankle Exam: right ankle: pain, other (Tenderness to palpation along the anterolateral aspect of the ankle and dorsum of foot. No obvious swelling no ice ecchymosis. No deformity. Ankle range of motion is normal. Some tenderness to palpation. Cap refill less than 2 seconds. Compartments are soft. No open or draining lesions), left ankle: non-tender, normal inspection, normal range of motion, no evidence of injury Foot Exam: right foot: pain (Tenderness to palpation to the anterolateral aspect of the ankle and dorsum of the right foot. Overlying soft tissue intact. Compartments are soft. Cap refill less than 2 seconds. PT DP pulse palpable.), left foot: non-tender, normal inspection, normal range of motion, no evidence of injury Neuro/Tendon Exam: normal sensation, normal motor functions Mental Status Exam: alert, oriented x 3, cooperative Skin Exam: normal color, warm, dry SpO2: 94 O2 Delivery: Room Air - Course Nursing assessment & vital signs reviewed: Yes - Radiology Exams Foot X-ray Interpretation: Interpreted by me (No fractures or dislocations. No soft tissue abnormalities) Ankle X-ray Interpretation: Interpreted by me (No fractures or dislocations no soft ti ssue abnormalities) Ordered Tests: Active Orders 24 hr Category Date Time Status ANKLE (3 VIEWS) Stat Exams 11/01/21 01:12 Ordered FOOT (2 VIEWS) Stat Exams 11/01/21 01:13 Ordered Medication Summary Discontinued Medications Generic Name Dose Route Start Last Admin Trade Name Freq PRN Reason Stop Dose Admin Ketorolac Tromethamine 30 mg 11/01/21 01:38 11/01/21 01:40 Ketorolac Tromethamine 30 Mg/Ml Inj IM 11/01/21 01:39 30 mg STAT ONE Administration Ketorolac Tromethamine Confirm 11/01/21 01:40 Ketorolac Tromethamine 30 Mg/Ml Inj Administered 11/01/21 01:41 Dose 30 mg .ROUTE .STK-MED ONE - Progress Progress: improved Progress Note: Patient reassessed. He feels well. Pain improved after Toradol administration. X-ray negative for fracture dislocation. No indication for further work-up at this time. Will discharge home. Patient will be given bilateral axillary crutches. Patient agrees to follow-up with primary care doctor within 48 hours for evaluation. Patient voices no other complaints or concerns at this time. Portions of this note were created with voice recognition technology. There may be grammatical, spelling, punctuation or sound alike errors 11/01/21 01:52 Counseled pt/family regarding: diagnosis, need for follow-up, rad results - Departure Departure Disposition: Home Clinical Impression: Foot sprain, Ankle sprain Condition: Stable Critical Care Time: No Referrals: ROBIN ARTIS [Primary Care Provider] - Follow up/PCP as directed Instructions: Ankle Sprain (DC), Foot Sprain (DC) Additional Instructions: Discharge/Care Plan KT MELENDEZ was seen on 11/01/21 in the Emergency Room. The patient was counseled regarding Diagnosis,Lab results, Imaging studies, need for follow up and when to return to the Emergency Room. Prescriptions given: Discharge Note I have spoken with the patient and/or caregivers. I have explained the patient's condition, diagnosis and treatment plan based on the information available to me at this time. I have answered the patient's and/or caregiver's questions and addressed any concerns. The patient and/or caregivers have as good understanding of the patient's diagnosis, condition and treatment plan as can be expected at this point. The vital signs have been stable. The patient's condition is stable and appropriate for discharge from the emergency department. The patient will pursue further outpatient evaluation with the primary care physician or other designated or consulting physician as outlined in the discharge instructions. The patient and/or caregivers are agreeable to this plan of care and follow-up instructions have been explained in detail. The patient and/or caregivers have received these instruction. The patient/and or caregivers are aware that any significant change in condition or worsening of symptoms should prompt an immediate return to this or the closest emergency department or call 911.
[2021-11-01 02:03] VITALS: BP 130/78; PULSE 90; O2SAT 96
--- NOTE | 2021-11-01 08:58 | XRAY ---
Indication: Pain following injury. Comparison: None 2 nonweightbearing views right foot demonstrates tiny anterior talus bone island. No other bony, articular, or soft tissue abnormalities.
--- NOTE | 2021-11-01 09:00 | XRAY ---
Indication: Pain following injury. Comparison: None 3 view right ankle demonstrates tiny anterior talus bone island. No other bony, articular, or soft tissue abnormalities.
== END 2021-11-01 02:00 | disposition home or self-care (01) ==
LOC: ED 01:03
DX: S93.401A Sprain of unspecified ligament of right ankle, initial encounter (principal); S93.601A Unspecified sprain of right foot, initial encounter; X50.0XXA Overexertion from strenuous movement or load, initial encounter; M79.671 Pain in right foot; M25.571 Pain in right ankle and joints of right foot; Z72.0 Tobacco use
CPT/HCPCS: 73610; 73620; 96372; 99283; J1885